=== PATIENT | male | born 1990 | race Caucasian/White ===

== ENCOUNTER 2018-05-07 14:55 | Emergency (ER) | payer OTHER ==
[~2018-05-07] VITALS: Ht 190.5 cm; Wt 131.5 kg
[~2018-05-07 14:55] MED LIST: HYDROCODON-ACE1 EAC7 PO; TOBRAMYCIN SULFA5 ML OPHTHALMIC
[2018-05-07] MEDS ORDERED: PROAIR HFA8.5 GM INH (15:08)
[2018-05-07] MEDS ORDERED: AMOXICILLIN 50500 MG PO (15:27)
[2018-05-07 15:36] VITALS: BP 156/88
== END 2018-05-07 15:37 | disposition home or self-care (01) ==
LOC: M.ERS 14:55
DX: J06.9 Acute upper respiratory infection, unspecified (principal); I10 Essential (primary) hypertension; I21.9 Acute myocardial infarction, unspecified; F17.210 Nicotine dependence, cigarettes, uncomplicated

== ENCOUNTER 2019-01-07 12:39 | Emergency (ER) | payer OTHER ==
[~2019-01-07] VITALS: Ht 188 cm; Wt 115.7 kg
[~2019-01-07 12:39] MED LIST changes: +AMOXICILLIN 50500 MG PO; +PROAIR HFA8.5 GM INH
[2019-01-07] MEDS ORDERED: KEFLEX500 M1 PO (14:25)
[2019-01-07 14:46] VITALS: BP 140/88
== END 2019-01-07 14:46 | disposition home or self-care (01) ==
LOC: M.ERS 12:39
DX: S91.332A Puncture wound without foreign body, left foot, initial encounter (principal); F17.200 Nicotine dependence, unspecified, uncomplicated; I10 Essential (primary) hypertension; W22.8XXA Striking against or struck by other objects, initial encounter; Y93.89 Activity, other specified; Y92.89 Other specified places as the place of occurrence of the external cause; Y99.8 Other external cause status

== ENCOUNTER 2020-01-14 06:07 | Emergency (ER) | payer OTHER ==
[~2020-01-14] VITALS: Ht 190.5 cm; Wt 106.6 kg
[~2020-01-14 06:07] MED LIST changes: +KEFLEX500 M1 PO
[2020-01-14 06:26] LABS: ABSOLUTE EOSINOPHILS 0.2 thou/uL (0.0-0.7); ABSOLUTE LYMPHOCYTES 1.6 thou/uL (0.8-5.3); ABSOLUTE MONOCYTES 0.7 thou/uL (0.0-1.2); ABSOLUTE NEUTROPHILS 2.1 thou/uL (1.6-8.1); BASOPHILS 0.8 %; EOSINOPHILS 4.2 %; HEMATOCRIT 44.2 % (42.0-52.0); HEMOGLOBIN 15.3 gm/dL (14.0-18.0); LYMPHOCYTES 34.6 %; MCH 31.7 pg (26.0-34.0); MCHC 34.6 g/dL (28.0-37.0); MCV 91.8 fL (80.0-100.0); MONOCYTES 15.4 %; MPV 8.7 fl. (7.2-11.1); NUCLEATED RBCS 0 /100WBC; PLATELET COUNT* 203 thou/uL (150-400); RBC 4.82 mil/uL (4.50-6.00); RDW-CV 14.5 % (10.5-14.5); WBC 4.7 thou/uL (4.0-11.0)
[2020-01-14] MEDS ORDERED: FLAGYL500 M1 PO (06:29)
[2020-01-14 06:33] LABS: CALCIUM 8.4 mg/dL (8.5-10.1); CREATININE 0.7 mg/dL (0.6-1.3); POTASSIUM 3.8 mmol/L (3.5-5.1)
[2020-01-14 06:37] LABS: TOTAL PROTEIN 7.6 g/dL (6.4-8.2)
[2020-01-14 07:19] VITALS: BP 110/82
== END 2020-01-14 07:20 | disposition home or self-care (01) ==
LOC: M.ERS 06:07
PROVIDERS: Emergency Medicine
DX: R19.7 Diarrhea, unspecified (principal); I10 Essential (primary) hypertension; F17.210 Nicotine dependence, cigarettes, uncomplicated